=== PATIENT | male | born 1945 | race Caucasian/White ===

== ENCOUNTER → 2024-05-12 16:02 | Outpatient (REF) | payer OTHER, SELFPAY | LOC: RCS 16:02 | PROVIDERS: ATTENDING PHYSICIAN Family Medicine | DX: I48.0 Paroxysmal atrial fibrillation (principal); I10 Essential (primary) hypertension | CPT/HCPCS: 93306 ==

== ENCOUNTER → 2024-06-09 10:44 | Outpatient (REF) | payer OTHER, SELFPAY | LOC: RAD 10:44 | PROVIDERS: ATTENDING PHYSICIAN Family Medicine; FAMILY PHYSICIAN Family Medicine | DX: J06.9 Acute upper respiratory infection, unspecified (principal) | CPT/HCPCS: 71046 ==

== ENCOUNTER 2024-06-25 06:48 | Day surgery (SDC) | payer OTHER, SELFPAY ==
[2024-06-21 08:52] VITALS: BMI 37.1
[2024-06-25] MEDS: ELIQUIS 5 MG PO (08:00)
== END 2024-06-25 09:15 | disposition home or self-care (01) ==
LOC: CATH 06:48
PROVIDERS: ATTENDING PHYSICIAN Internal Medicine Cardiovascular Disease; FAMILY PHYSICIAN Family Medicine; OTHER PHYSICIAN Student in an Organized Health Care Education/Training Program
DX: I48.0 Paroxysmal atrial fibrillation (principal); I10 Essential (primary) hypertension; R06.09 Other forms of dyspnea; Z79.899 Other long term (current) drug therapy; Z79.01 Long term (current) use of anticoagulants; E78.5 Hyperlipidemia, unspecified; N40.0 Benign prostatic hyperplasia without lower urinary tract symptoms; E66.9 Obesity, unspecified; G47.33 Obstructive sleep apnea (adult) (pediatric); R73.03 Prediabetes; Z87.891 Personal history of nicotine dependence; F32.A Depression, unspecified; F41.9 Anxiety disorder, unspecified; I34.0 Nonrheumatic mitral (valve) insufficiency
CPT/HCPCS: 93312; 93320; 93325; 92960; 93005

== ENCOUNTER 2024-07-25 14:01 | Emergency (ER) | payer OTHER, SELFPAY ==
[2024-07-25 14:08] VITALS: BP 162/95
[2024-07-25 14:30] VITALS: BP 149/86
[2024-07-25 14:41] VITALS: BMI 35.6
[2024-07-25 15:00] VITALS: BP 110/81
[2024-07-25 15:20] LABS: % Basophils 0.8 % (0-2); % Eosinophils 1.8 % (0-6); % Immature Granulocytes 0.3 % (0-0.5); % Lymphocytes 26.4 % (20.5-51.1); % Monocytes 10.1 % (1.7-9.3); % Neutrophils 60.6 % (42.2-75.2); Absolute Basophils 0.1 10^3/uL (0-0.2); Absolute Eosinophils 0.1 10^3/uL (0-0.7); Absolute Lymphocytes 1.8 10^3/uL (1.2-3.4); Absolute Monocytes 0.7 10^3/uL (0.1-0.6); Hematocrit 44.7 % (39.0-52.0); Mean Corp Hgb Conc. 33.6 g/dL (33.0-37.0); Mean Corpuscular Volume 89.4 fL (80.0-94.0); Mean Platelet Volume 10.6 fL (7.4-10.4); Nucleated Red Blood Cells % 0 % (-); Platelet Count 198 10^3/uL (130-400); White Blood Cell Count 6.6 10^3/uL (4.8-10.8)
--- NOTE | 2024-07-25 15:29 | ED.GENMED ---
History of Present Illness
General
Chief Complaint: Chest Pain
Source: patient and spouse
Time Seen by Provider: 07/25/24 15:08
History of Present Illness
History of Present Illness:
79-year-old male with past medical history of hypertension, hyperlipidemia, atrial fibrillation status post recent synchronized electrical cardioversion around 1 month ago presenting to the emergency department for evaluation of 2 episodes of chest
discomfort that occurred once on Friday and another time yesterday which she states all occurred after waking up from a nap in the mid afternoon, lasting about 20 minutes each time, yesterday a little bit more severe which is what prompted him to
come to the ER today. Patient states that there was no other symptoms associated. He notes that the pain was mainly mid sternum and seem to be a little bit worse when he attempted to take a deep breath. He notes presently without any symptoms.
Patient had a cardioversion done around a little over a month ago. He also had a stress test during this which was unremarkable. Patient takes Eliquis daily and reports good compliance with this. He states that on a follow-up visit with
cardiology he was noted to be back in atrial fibrillation, rate controlled and states that after the holidays they were going to discuss further measures such as ablation. Patient denies any recent illnesses. No other concerns presently.
Past History
Past History
ED Past Medical History: Arrthythmia, HTN, Hypercholesterolemia and Other (BPH)
ED Past Surgical History: Appendectomy and Tonsilectomy
Social History
Tobacco: Former smoker
Alcohol: None
Drug: None
Personal:
Living: with family
Review of Systems
Review of Systems
All Other Systems: ROS reviewed and negative except as documented in HPI and ROS
Phy Exam
Physical Exam
Physical Exam:
GENERAL: Alert , in no apparent distress
EYE: clear conjunctiva b/l
HEAD: NCAT
ENT: o/p clr, mmm.
CARDIAC: Rate controlled A-fib.
LUNGS: Clear breath sounds bilaterally, no acute respiratory distress, no wheezes/rales/rhonchi
ABDOMEN: Soft, without focal tenderness, no r/g, no cvat
NEUROLOGICAL: Alert and oriented
SKIN: Warm and dry, skin intact.
MUSCULOSKELETAL: No edema, well perfused.
PSYCH: Normal and appropriate interaction.
Scores
Heart Failure Risk
Heart Failure Risk Score: Not Applicable
Heart Score for Chest Pain Patients
STEMI patient?: No
History: Slightly or Non-Suspicious
ECG: Nonspecific Repolarization
Age: >/= 65 years
Risk Factors: 1 or 2 Risk Factors
Troponin: </= Normal Limit
Heart Score for Chest Pain Patients: 4
Heart Score Risk: 20.3% MACE over next 6 weeks
Withdrawal Assessment of Alcohol
Withdrawal Assessment Completed?: Not applicable
Course
Orders/Labs/Results
Orders:
Orders
07/25/24 14:02
EKG [Electrocardiogram (*1)] Urgent
Reason for Study: Chest Pain
EKG- Treatment ONCE
07/25/24 14:44
Complete Blood Count/With Diff Urgent
Comprehensive Metabolic Panel Urgent
Troponin I Urgent
07/25/24 15:27
CR Chest - 2 Views Urgent
Comment:
Reason For Exam: chest pain
07/25/24 17:25
EKG [Electrocardiogram (*1)] Urgent
Reason for Study: Chest Pain
EKG- Treatment ONCE
07/25/24 17:26
Troponin I Urgent
Abnormal Lab Results
07/25/24
14:44
RDW 15.0 H %
(11.5-14.5)
MPV 10.6 H fL
(7.4-10.4)
Absolute Monos (auto) 0.7 H 10^3/uL
(0.1-0.6)
Monocytes % 10.1 H %
(1.7-9.3)
Chloride 108 H mmol/L
(98-107)
Total Protein 6.1 L g/dl
(6.3-8.2)
07/25/24 14:44
07/25/24 14:44
Vital Signs
Initial and Last Documented VS:
Initial Vital Signs
Temp Pulse Resp BP Pulse Ox
98.0 F 72 16 162/95 98
07/25/24 14:08 07/25/24 14:08 07/25/24 14:08 07/25/24 14:08 07/25/24 14:08
Last Documented Vital Signs
Temp Pulse Resp BP Pulse Ox
98.0 F 81 24 144/88 96
07/25/24 14:08 07/25/24 18:00 07/25/24 18:00 07/25/24 18:00 07/25/24 18:00
MDM/Problems Addressed
Differential Diagnosis Includes:
Atrial fibrillation, ACS, PE considered given patient's reported respiratory component however is anticoagulated on Eliquis with reported good compliance as well as with waxing and waning symptoms making this diagnosis much less likely, GERD, less
concern for infectious etiology given lack of symptoms
MDM/Problems Addressed:
79-year-old male presenting to the emergency department for evaluation of 2 episodes of chest discomfort, 1 on Friday and 1 yesterday, sternal, started after a nap each day around midday lasting approximately 20 minutes but with no other associated
symptoms. Patient currently asymptomatic and in no acute distress. Noted to be in a rate controlled atrial fibrillation. Reassuringly, patient with recent stress test which did not show any ischemic changes on his EKG and was asymptomatic during
this time. Patient also with recent echocardiogram which was reportedly unremarkable. No fevers or infectious symptoms and is otherwise well-appearing. Will check labs, chest x-ray with anticipation of close outpatient follow-up with cardiology.
Chronic conditions affecting care: Arrhythmia
Acute Exacerbation and/or Progression of Chronic Illness: Arrhythmia
*Radiology
Radiology exam reviewed: radiology read reviewed (Normal CXR)
*Pulse Oximetry
Patient hypoxic: no
*EKG
Heart Rate: 82
Rate: normal
Rhythm: a-fib
[place]: normal axis
Ischemia: T-wave inversion (Anterior leads)
*Straightening Press Operator Interpretation
Rate: normal
Rhythm: a-fib
*Critical Care Note
Total Time (30-74mins, 75-104mins- exclusive of procedures): Not Applicable
Data Reviewed
Review of Other/Old Records Reveals: Labs, Records and Testing
Source: patient, records and spouse
Patient Management
Social determinants of health affecting care: Living situation and Strong social support
Escalation/DeEscalation of care consider admission/obs:
Patient remains chest pain free. Repeat troponin negative. Will notify chest pain hotline. Stable for d/c home. Aware of return precautions
ED Attending Note
-
Portions of this chart may have been created with voice recognition software.� Occasional wrong word or��sound alike� substitutions may have occurred due to the inherent limitations of voice recognition software.
Discharge Plan
Departure
Patient Disposition: Home (Routine Discharge)
Date of Disposition: 07/25/24
Time of Disposition: 17:59
Patient with high blood pressure during this ER visit?: Yes
Discharge Problem:
Chest pain
Instructions: Chest Pain CBC Follow Up
Prescriptions:
No Action
enalapril maleate 10 MG tablet
15 mg PO HS
metoprolol succinate 50 MG tablet extended release 24 hr
50 mg PO BID
amlodipine 2.5 MG tablet
5 mg PO HS
fluoxetine 20 MG capsule
20 mg PO HS
rosuvastatin 10 MG tablet
10 mg PO Q48H
ibuprofen 200 mg Tablet
400 mg PO Q6H PRN (Reason: pain)
coenzyme Q10 [CoQ-10] 100 mg Capsule
100 mg PO BID
Eliquis 5 mg Tablet
5 mg PO BID
Referrals:
Filomena Medina MD [Family Provider] -
Interventions
Interventions:
*Risk Screen - Suicide Last Done: 07/25/24 14:08
*General Assessment Last Done: 07/25/24 14:08
*Neglect/Abuse Screening Last Done: 07/25/24 14:08
ED- Fall Risk Assessment Last Done: 07/25/24 14:40
*ED COVID-19 Vaccine History Last Done: 07/25/24 14:08
*Nursing Disposition Last Done: 07/25/24 18:09
ED- Cardiac Assessment Last Done: 07/25/24 14:41
Discharge Date and Time
Discharge Date/Time: 07/25/24 18:16
Print Language: LITHUANIAN
[2024-07-25 15:43] LABS: ALT (SGPT) 31 U/L (0-50); AST (SGOT) 24 U/L (17-59); Albumin 3.6 g/dl (3.5-5.0); Alkaline Phosphatase 88 U/L (38-126); Blood Urea Nitrogen 16 mg/dl (9-20); Calcium 9.4 mg/dl (8.4-10.2); Carbon Dioxide 27 mmol/L (22-30); Chloride 108 mmol/L (98-107); Estimated Creatinine Clearance 79 ml/min; Glucose 89 mg/dl (70-99); Potassium 4.2 mmol/L (3.5-5.1); Sodium 142 mmol/L (135-145); Total Bilirubin 0.2 mg/dl (0.2-1.3); Total Protein 6.1 g/dl (6.3-8.2); eGFR > 60.00
[2024-07-25 15:44] LABS: Troponin I < 0.012 ng/ml
[2024-07-25 17:00] VITALS: BP 123/89
[2024-07-25 17:57] LABS: Troponin I < 0.012 ng/ml
[2024-07-25 18:00] VITALS: BP 144/88
== END 2024-07-25 18:16 | disposition home or self-care (01) ==
LOC: EMR 14:01
PROVIDERS: Emergency Medicine; Physician Assistant Medical; EMERGENCY PHYSICIAN Emergency Medicine; FAMILY PHYSICIAN Family Medicine
DX: R07.89 Other chest pain (principal); I10 Essential (primary) hypertension; E78.00 Pure hypercholesterolemia, unspecified; I48.91 Unspecified atrial fibrillation; Z79.01 Long term (current) use of anticoagulants; Z87.891 Personal history of nicotine dependence
CPT/HCPCS: 99285; 71046; 80053; 84484; 85025; 93005

== ENCOUNTER → 2025-04-04 07:31 | Outpatient (REF) | payer OTHER, SELFPAY | LOC: RCS 07:31 | PROVIDERS: ATTENDING PHYSICIAN Nurse Practitioner; FAMILY PHYSICIAN Family Medicine | DX: I48.19 Other persistent atrial fibrillation (principal); R07.89 Other chest pain; R06.09 Other forms of dyspnea | CPT/HCPCS: 78452; 93017; A9500 ==